=== PATIENT | female | born 2000 ===

== ENCOUNTER 2024-06-17 22:41 | Inpatient (IN) ==
[2024-06-17] MEDS ORDERED: Buffered Lidocaine 1% SYRIN 1 ml INTRADERM ONE (23:38)
[2024-06-18 00:03] LABS: ABS Basophils 0.1 10^3/uL (0.0-0.1); ABS Eosinophils 0.1 10^3/uL (0.0-0.5); ABS Monocytes 0.8 10^3/uL (0.0-0.9); ABS Neutrophils 7.5 10^3/uL (1.5-7.6); Eosinophil % 0.8 %; Hematocrit 36.8 % (35-45); Hemoglobin 12.3 g/dL (11.5-14.3); Lymphocyte % 26.4 %; Mean Corpuscular Hemoglobin 27.4 pg (27-33); Mean Corpuscular Hgb Conc 33.5 g/dL (31-36); Mean Corpuscular Volume 81.9 fL (80-97); Mean Platelet Volume 8.4 fL (7.5-11.2); Platelet Count 233 10^3/uL (150-450); Red Blood Count 4.49 10^6/uL (3.63-4.92); Red Cell Distribution Width 15.1 % (12-17); White Blood Count 11.5 10^3/uL (3.8-11.8)
[2024-06-18 00:19] LABS: Urine Benzodiazepine Screen None Detected (None Detect); Urine Cannabinoids Screen None Detected (None Detect); Urine Opiates Screen None Detected (None Detect)
[2024-06-18] MEDS: Lactated Ringers 1000 ml BAG 1,000 ML IV ONE (02:39)
[2024-06-18] MEDS ORDERED: Phenylephrine 40 mcg/mL 10mL (400mcg) SYRINGE ONE (03:53)
[2024-06-18] MEDS ORDERED: Lidocaine 1.5% EPI 1:200,000 30 ML SDV ONE (03:53)
[2024-06-18] MEDS: Lactated Ringers 1000 ml BAG 1,000 ML IV SCH (04:01)
[2024-06-18] MEDS: OBEPIDURAL (200 ML) 200 ML EPIDURAL SCH (04:30)
[2024-06-18] MEDS ORDERED: Sodium Citrate/Citric Acid LIQ 15 ML UDC PO PRN (04:46)
[2024-06-18] MEDS ORDERED: Lactated Ringers 1000 ml BAG 1,000 ML IV ONE (04:46)
[2024-06-18] MEDS ORDERED: Phenylephrine 40 mcg/mL 10mL (400mcg) SYRINGE IV PUSH PRN ×2 (04:46)
[2024-06-18] MEDS ORDERED: Lactated Ringers 1000 ml BAG 1,000 ML IV SCH (05:00)
[2024-06-18 05:55] LABS: Urine Appearance Clear; Urine Bilirubin Negative (Negative); Urine Blood Negative (Negative); Urine Color Colorless; Urine Glucose Negative (Negative); Urine Ketones Negative (Negative); Urine Nitrite Negative (Negative); Urine Protein Negative (Negative); Urine Specific Gravity 1.009 (1.002-1.030); Urine Urobilinogen Negative (Negative)
[2024-06-18] MEDS: OBEPIDURAL (200 ML) 200 ML EPIDURAL ONE (06:01)
[2024-06-18] MEDS: Oxytocin in LR 20,000 MILLI.UNIT/1,000 ML BAG IV SCH (06:27)
[2024-06-18] MEDS: Lidocaine 1% VIAL 10 MG/ML 30 ML VIAL INJ PRN (10:49)
[2024-06-18] MEDS ORDERED: Witch Hazel PAD JAR TOPICAL PRN (12:13)
[2024-06-18] MEDS ORDERED: Dibucaine 1% OINT 28.35 GM TUBE PR PRN (12:13)
[2024-06-18] MEDS ORDERED: Glycerin ADULT 2.4 gm SUPP PR PRN (12:13)
[2024-06-18] MEDS ORDERED: Oxytocin in LR 20,000 MILLI.UNIT/1,000 ML BAG IV SCH (12:15)
[2024-06-19 06:18] LABS: ABS Basophils 0.1 10^3/uL (0.0-0.1); ABS Lymphocytes 2.5 10^3/uL (1.0-4.8); ABS Monocytes 0.7 10^3/uL (0.0-0.9); ABS Neutrophils 9.5 10^3/uL (1.5-7.6); Eosinophil % 0.4 %; Hematocrit 30.3 % (35-45); Hemoglobin 10.3 g/dL (11.5-14.3); Lymphocyte % 19.3 %; Mean Corpuscular Hemoglobin 28.3 pg (27-33); Mean Corpuscular Hgb Conc 34.1 g/dL (31-36); Mean Corpuscular Volume 82.9 fL (80-97); Platelet Count 180 10^3/uL (150-450); Red Blood Count 3.65 10^6/uL (3.63-4.92); Red Cell Distribution Width 15.1 % (12-17); White Blood Count 12.8 10^3/uL (3.8-11.8)
[2024-06-19 08:52] VITALS: BP 110/66
== END 2024-06-19 17:32 | disposition home or self-care (01) | DRG 560 ==
LOC: MCHOBOUT 22:41 → MCHOB 23:47
PROVIDERS: ADMIT Midwife